=== PATIENT | female | born 1980 | race Caucasian/White ===

== ENCOUNTER 2020-08-18 03:24 | Emergency (ER) | payer MEDICAID ==
--- NOTE | 2020-08-18 03:38 | EDM.PDOC ---
ED HPI GENERAL MEDICAL PROBLEM - General Chief Complaint: ENT Problem Stated Complaint: INFECTION ON LEFT SIDE OF FACE Time Seen by Provider: 08/18/20 03:27 Source of Information: Reports: Patient History Limitations: Reports: No Limitations - History of Present Illness INITIAL COMMENTS - FREE TEXT/NARRATIVE: Ysabel is a 39-year-old female presenting to the ED for evaluation of possible dental infection. The patient has a history of multiple dental problems involving tooth #14. She reports that every time she goes to the dentist and putting a new filling in this tooth. At some point she should have had a crown applied, however, that has not occurred yet. She was trying to open a bottle of nail [place] using her teeth on the cap, causing a fracture of the tooth that has now led to the development of an abscess with gum swelling and facial swelling overlying the maxillary sinus. She denies any fever or chills. She denies any exposure to anyone with Covid as she has been in isolation since November. - Related Data Allergies Allergy/AdvReac Type Severity Reaction Status Date / Time venom-honey bee Allergy Airway Verified 03/06/16 19:04 [bee venom (honey bee)] Tightness Home Meds: Home Meds EPINEPHrine [Epipen] 1 injection IM ASDIRECTED PRN 03/06/16 [History] Escitalopram [Lexapro] 10 mg PO QAM 03/06/16 [History] clonazePAM [Clonazepam] 1 mg PO QAM 03/06/16 [History] Past Medical History Gastrointestinal History: Reports: Other (See Below) Other Gastrointestinal History: Bulemia. anorexia 10 years ago LOSS CLAIM CLERK History: Reports: , Other (See Below) Other LOSS CLAIM CLERK History: uterine biopsy Musculoskeletal History: Reports: Fracture Psychiatric History: Reports: Anxiety, OCD, Panic Attack, Other (See Below) Other Psychiatric History: agoraphobia Oncologic (Cancer) History: Reports: Malignant Melanoma - Past Surgical History Female Surgical History: Reports: Other (See Below) Musculoskeletal Surgical History: Reports: Arthroscopic Knee, Arthroscopic Procedure Oncologic Surgical History: Reports: Other (See Below) ED ROS ENT - Review of Systems Review Of Systems: See Below Constitutional: Reports: No Symptoms HEENT: Reports: Dental Pain (Involving tooth #14), Other Respiratory: Reports: No Symptoms Cardiovascular: Reports: No Symptoms Endocrine: Reports: No Symptoms GI/Abdominal: Reports: No Symptoms Musculoskeletal: Reports: No Symptoms Skin: Reports: No Symptoms Neurological: Reports: No Symptoms Psychiatric: Reports: No Symptoms ED EXAM, ENT - Physical Exam Exam: See Below Exam Limited By: No Limitations General Appearance: Alert, WD/WN, Mild Distress Mouth/Throat: Dental Pain, Dental Tenderness (Involving tooth #14 with significant gingivitis and moderate to severe pain with palpation of the tooth. The peer is a part of the crown of the tooth is missing i.e. fractured), Dental Trauma, Gum Swelling Head: Atraumatic, Normocephalic, Facial Swelling (Over the left maxillary sinus) Neck: Normal Inspection, Supple, Non-Tender, Full Range of Motion. No: Lymphadenopathy (R), Lymphadenopathy (L) Respiratory/Chest: No Respiratory Distress Neurological: Alert, Oriented Lymphatic: No Adenopathy Course - Re-Assessments/Exams Free Text/Narrative Re-Assessment/Exam: 08/18/20 03:47 a.m. he clearly has a ongoing infection in tooth #14 likely an apical abscess due to the fractured tooth. This is now causing facial swelling overlying this area with tenderness to palpation of the face and tenderness to percussion of the left maxillary sinus. We will put the patient on clindamycin 300 mg 3 times daily for 10 days to treat the infection. I encouraged her to follow-up with her dentist as soon as possible as she will likely need a root canal of this tooth. She may continue to take ibuprofen for pain control. At this time patient is suitable for discharge in satisfactory condition. All questions were answered prior to discharge. Indications to return to the ED were discussed. Departure - Departure Time of Disposition: 03:38 Disposition: Home, Self-Care 01 Condition: Good Clinical Impression: Dental abscess, Swelling of left side of face - Discharge Information *PRESCRIPTION DRUG MONITORING PROGRAM REVIEWED*: Not Applicable *COPY OF PRESCRIPTION DRUG MONITORING REPORT IN PATIENT LISA: Not Applicable Instructions: Dental Abscess, [id number] Care Plan Goals: It appears that you have a dental fracture that has now led to a dental abscess involving tooth #14. I am starting you on clindamycin 300 mg 3 times a day for the next 10 days. Please take the prescription to completion. Please follow-up as soon as possible with a dentist as you may need to have a root canal on this tooth. - Problem List & Annotations (1) Dental abscess SNOMED Code(s): 351758894 Code(s): K04.7 - PERIAPICAL ABSCESS WITHOUT SINUS Status: Acute Priority: Medium Current Visit: Yes (2) Swelling of left side of face SNOMED Code(s): 386202333 Code(s): R22.0 - LOCALIZED SWELLING, MASS AND LUMP, HEAD Status: Acute Priority: Medium Current Visit: Yes - Problem List Review Problem List Initiated/Reviewed/Updated: Yes
[2020-08-18 03:59] VITALS: BP 149/79; PULSE 117
== END 2020-08-18 03:55 | disposition home or self-care (01) ==
LOC: JP.ED 03:24
DX: K04.7 Periapical abscess without sinus (principal); F41.9 Anxiety disorder, unspecified; Z91.030 Bee allergy status; Z79.899 Other long term (current) drug therapy
CPT/HCPCS: 99282; 99283